=== PATIENT | male | born 1990 | race Caucasian/White ===

== ENCOUNTER 2020-04-02 12:37 | Emergency (ER) | payer MEDICAID, SELFPAY ==
[2020-04-02 12:39] VITALS: BP 129/85; PULSE 50; RESP 16; TEMP 36.1; O2SAT 100; BMI 21.2
--- NOTE | 2020-04-02 12:58 | ED.VIS.GEN ---
History of Present Illness Chief Complaint: Overdose Informant: Patient Narrative: 29-year-old male presenting after having a heroin overdose. He was transported by EMS. He states he injects heroin. States he is overdosed in the past. Patient was alert and awake and did not require Narcan by EMS. He is still alert and awake here. He has no complaints except for he is cold and thirsty. Prior similar symptoms: Yes Past Medical History - Allergies and Home Meds Allergies/Adverse Reactions: Allergies No Known Allergies Allergy (Verified 04/02/20 12:45) Primary Care Physician: Care Physician,No Primary [Primary Care Provider] - Prior records reviewed: Yes Past Medical History: - - Hepatitis C Surgical History: noncontributory Lives: Alone Smoking Status: Current every day smoker Alcohol: Rare Drugs: Heroin Review of Systems General: Denies: Chills, Fever, Sweats Eyes: Denies: Visual changes - bilaterally, Diplopia ENT: Denies: Rhinorrhea, Sore throat Cardiovascular: Denies: Chest pain, Palpitations Respiratory: Denies: Dyspnea, Cough, Dyspnea on exertion Gastrointestinal: Denies: Abdominal pain, Nausea, Vomiting, Diarrhea, Melena, Hematochezia Genitourinary: Denies: Dysuria, Hematuria, Frequency Musculoskeletal: Denies: Back pain, Extremity Pain Skin: Denies: Rash, Wounds Neurological: Denies: Headache, Weakness, Numbness Psych: Denies: Suicidal thoughts, Suicidal ideations Physical Exam Vital Signs/Narrative: Vital Signs Temp Pulse Resp BP Pulse Ox 04/02/20 12:39 96.9 F L 50 L 16 129/85 H 100 General: Well nourished, No Acute Distress Head: Normocephalic, Atraumatic Eyes: Perrl, EOMI ENT: Moist mucous membranes, No rhinorrhea Cardiovascular: Regular rhythm, Bradycardia Respiratory: No distress, CTA bilaterally Back: Nontender, Normal Inspection Extremities: Nontender, No edema Skin: Normal color, No rash. Negative for: Cyanosis, Diaphoresis Neurological: Alert, Oriented x3, Cranial nerves II-XII grossly intact Psychological: Normal affect, Normal Mood Diagnostic/Tx/Re-eval - Medical Decision Making 29-year-old male with admitted heroin use presents for evaluation via EMS. He has not required Narcan. He is alert and awake. He does not want a work-up and just wishes to call a ride. He did request something for nausea and was given Zofran. His nausea is resolved. He was monitored in the ED for about an hour and has remained stable. Patient discharged home in stable condition. Impression: 1. Heroin overdose ED Disposition - Plan for ED Patient: Disposition: Home or Assisted Living Instructions: ED Overdose Opiate Referrals: Care Physician,No Primary [Primary Care Provider] -
--- NOTE | 2020-04-02 13:04 | ED.RN ---
THIS NURSE OPENED UP PT'S CURTAIN AND PT BECAME ARGUMENTATIVE AND DEMANDED TO HAVE CURTAIN CLOSED, THIS NURSE EXPLAINED THAT PT IS UNDER OBSERVATION DUE TO HEROIN USE AND THE DOOR IS CLOSED, LIGHTS OFF SO PT CAN REST QUIETLY. VITALS 104/46, PULSE 44, RESPIRATIONS 14.
[2020-04-02 13:08] VITALS: BP 107/86; PULSE 45; RESP 16
[2020-04-02] MEDS: Ondansetron ODT 4 MG Tablet PO (13:28)
--- NOTE | 2020-04-02 13:29 | ED.RN ---
pt c/o nausea and medicated with zofran.
== END 2020-04-02 13:43 | disposition home or self-care (01) ==
PROVIDERS: Emergency Provider Student in an Organized Health Care Education/Training Program
DX: T40.1X1A Poisoning by heroin, accidental (unintentional), initial encounter (principal); R11.0 Nausea; Y92.9 Unspecified place or not applicable; B19.20 Unspecified viral hepatitis C without hepatic coma; F17.200 Nicotine dependence, unspecified, uncomplicated
CPT/HCPCS: 99283

== ENCOUNTER 2020-04-18 17:40 | Emergency (ER) | payer MEDICAID, SELFPAY ==
[2020-04-18 17:40] VITALS: BP 107/62; PULSE 79; RESP 13; TEMP 35.9; O2SAT 98; BMI 21.2
[2020-04-18 17:46] VITALS: BP 107/69; PULSE 72; RESP 13; O2SAT 100
--- NOTE | 2020-04-18 17:59 | ED.VISSUMM ---
- ER Visit Summary Date of Service: 04/18/20 Chief Complaint: Heroin overdose History of Present Illness: The patient is a 29 M history of drug abuse. Patient's had prior overdoses. Reportedly overdosed on IV heroin today. He denied any complaints prior to the overdose. Physical Examination: Young male no acute distress vital signs stable afebrile. Pulse ox 100% on room air. HEENT exam pupils round reactive light. No signs of trauma to his face or scalp. Moist mucous membranes. No facial droop. Normal voice. Neck nontender. No lymphadenopathy. Lungs clear to auscultation bilaterally. Heart regular rhythm rate about 70 no murmur. Chest wall nontender. Abdomen soft nontender. Extremities moving all 4. Neurovascular intact. Nontender. Normal electrical installer strength. Normal range of motion. No deformity. Back nontender. Skin multiple tattoos otherwise unremarkable. No rashes. Neurologically is awake alert with no focal motor deficits. Test Results: None Emergency Department Course and Treatment: Patient with acute heroin overdose. To be watched emergency department. He is not requesting detox and will be discharged home. Treatment Plan: Follow-up with [facility]. Disposition: Discharge Impression: Acute heroin overdose Drug abuse history This note was generated with [employer] dictation software. It may contain incorrect words, spelling, and punctuation that were not noted in review of the chart prior to signing ED Disposition - Plan for ED Patient: Referrals: Care Physician,No Primary [Primary Care Provider] -
--- NOTE | 2020-04-18 18:03 | ED.DEP ---
ED Disposition - Plan for ED Patient: Disposition: Home or Assisted Living Instructions: ED Abuse Narcotic Referrals: Carrie Dumont [NON-STAFF] - As soon as possible Additional Instructions: Follow-up with [facility] for drug abuse counseling and treatment.
[2020-04-18 19:17] VITALS: BP 97/65; PULSE 69; RESP 14; O2SAT 97
[2020-04-18 19:32] VITALS: BP 97/58; PULSE 59; RESP 12; O2SAT 99
[2020-04-18 20:05] VITALS: BP 104/68; PULSE 81; RESP 14; O2SAT 99
--- NOTE | 2020-04-18 20:40 | ED.RN ---
PT UP TO W/C AND VOMITING, NOTE LEFT FOR DR. SANDERSON FOR MEDICATION.
[2020-04-18] MEDS: Ondansetron 8 MG Tablet PO (20:50)
== END 2020-04-18 20:06 | disposition home or self-care (01) ==
LOC: ED 18:12
PROVIDERS: Emergency Provider Emergency Medicine
DX: T40.1X1A Poisoning by heroin, accidental (unintentional), initial encounter (principal); F11.10 Opioid abuse, uncomplicated; Y92.9 Unspecified place or not applicable; Z72.0 Tobacco use
CPT/HCPCS: 99284